=== PATIENT | male | born 1985 | race African-American/Black ===

== ENCOUNTER 2016-11-30 13:36 | Emergency (ER) | payer BC ==
[~2016-11-30] VITALS: Ht 180.3 cm; Wt 93.0 kg
[~2016-11-30 13:36] MED LIST: ADVAIR HFA 230M12 GM INH; ALBUTEROL2.5 MG/0.1 INH; BENTYL 20 MG TA20 M1 PO; NORCO 5-325 TA1 EACH PO; ONDANSETRON HCL4 M2 PO; VALIUM5 MG PO
[2016-11-30] MEDS ORDERED: MUCINEX600 MG PO (13:50)
[2016-11-30] MEDS ORDERED: PREDNISONE 20 M20 MG PO (16:08)
[2016-11-30 16:19] VITALS: BP 125/84
== END 2016-11-30 16:25 | disposition home or self-care (01) ==
LOC: ER 13:36
DX: J45.901 Unspecified asthma with (acute) exacerbation (principal); Z90.49 Acquired absence of other specified parts of digestive tract

== ENCOUNTER 2016-11-30 19:22 | Emergency (ER) | payer BC ==
[~2016-11-30] VITALS: Ht 180.3 cm; Wt 93.0 kg
--- NOTE | ~2016-11-30 | EKG ---
[address] [address] ELECTROCARDIOGRAM REPORT Name: MAYNORBRAXTON Castrejon Room #: DEP Rudolph#: [id number] Admission: 11/30/16 Attend Phys: Discharge: 11/30/16 Date of : 89 Report #: [id number] THIS REPORT FOR: //name// [facility] ED Test Date: 2016-11-30 Test Time: 20:11:19 Pat Name: BRAXTON MCGUIRE Department: Room: Gender: Audio Visual Facilities Engineer: [facility] : 1985 Requested By: Rekha Hope Order Number: [id number] MD: Kyree Hall Measurements Intervals [place] Rate: 98 P: 76 [place]: 156 QRS: 53 QRSD: 90 T: 45 QT: 346 QTc: 442 Interpretive Statements Sinus rhythm Normal tracing No previous ECG available for comparison Electronically Signed On 12-02-2016 8:27:19 CDT by Kyree Hall [email or web address] <ELECTRONICALLY SIGNED> By: Kyree Hall MD, [facility] 12/02/16 0827 10 10 Kyree Hall MD, FACC /EPI
[~2016-11-30 19:22] MED LIST changes: +MUCINEX600 MG PO; +PREDNISONE 20 M20 MG PO
[2016-11-30 22:03] VITALS: BP 120/79
== END 2016-11-30 22:05 | disposition home or self-care (01) ==
LOC: ER 19:22
DX: J45.901 Unspecified asthma with (acute) exacerbation (principal); Z90.49 Acquired absence of other specified parts of digestive tract

== ENCOUNTER → 2016-12-03 | Outpatient (CLI) | payer BC | LOC: CAT 11:04 | DX: J84.9 Interstitial pulmonary disease, unspecified (principal); J45.901 Unspecified asthma with (acute) exacerbation; R06.00 Dyspnea, unspecified ==

== ENCOUNTER → 2017-07-16 | Outpatient (CLI) | payer OTHER | LOC: RAD 12:57 | DX: M54.41 Lumbago with sciatica, right side (principal) ==